=== PATIENT | female | born 1980 | race Caucasian/White ===

== ENCOUNTER 2017-08-21 16:48 | Emergency (ER) | payer MEDICAID ==
[~2017-08-21] VITALS: Ht 152.4 cm; Wt 89.8 kg
[2017-08-21 16:52] VITALS: BP 144/90; Ht 152.4 cm; Wt 89.8 kg
== END 2017-08-21 18:32 | disposition home or self-care (01) ==
LOC: ED 16:48
DX: L29.2 Pruritus vulvae (principal); E03.9 Hypothyroidism, unspecified

== ENCOUNTER 2017-12-14 18:58 | Emergency (ER) | payer MEDICAID ==
[~2017-12-14] VITALS: Ht 152.4 cm; Wt 87.5 kg
[2017-12-14 19:03] VITALS: Ht 152.4 cm; Wt 87.5 kg
[2017-12-14 20:52] VITALS: BP 145/84
== END 2017-12-14 20:52 | disposition home or self-care (01) ==
LOC: ED 18:58
DX: L03.032 Cellulitis of left toe (principal); I10 Essential (primary) hypertension

== ENCOUNTER 2018-04-04 19:55 | Emergency (ER) | payer MEDICAID ==
[~2018-04-04] VITALS: Ht 152.4 cm; Wt 90.8 kg
[2018-04-04 20:06] VITALS: Ht 152.4 cm; Wt 90.8 kg
[2018-04-04 20:32] LABS: PLATELET COUNT 290 x10^3mcL (130-400); RED CELL DISTRIBUTION WIDTH 13.5 % (11.5-14.5)
[2018-04-04 20:45] LABS: ALBUMIN 3.7 g/dL (3.4-5.0); ALKALINE PHOSPHATASE 98 U/L (46-116); ALT/SGPT 33 U/L (14-59); AST/SGOT 20 U/L (15-37); BILIRUBIN TOTAL 0.17 mg/dL (0.20-1.00); CALCIUM 8.8 mg/dL (8.5-10.1); CARBON DIOXIDE 29.4 mmol/L (21-32); CHLORIDE SERUM 102 mmol/L (98-107); CREATININE SERUM 0.6 mg/dL (0.6-1.0); GFR1 > 60 mL/min; GLUCOSE SERUM 99 mg/dL (74-106); LIPASE 150 IU/L (73-393); SODIUM SERUM 134 mmol/L (136-145); TOTAL PROTEIN, SERUM 8.1 g/dL (6.4-8.2)
[2018-04-04 20:50] LABS: POTASSIUM SERUM 2.9 mmol/L (3.5-5.1)
[2018-04-04 23:17] LABS: UA SPECIFIC GRAVITY <=1.005 (1.005-1.035); microscopic required? YES; urine erythrocyte TRACE (NEGATIVE)
[2018-04-04 23:40] VITALS: BP 111/70
== END 2018-04-04 23:52 | disposition home or self-care (01) ==
LOC: ED 19:55
PROVIDERS: Emergency Medicine
DX: N30.00 Acute cystitis without hematuria (principal); E87.6 Hypokalemia
CPT/HCPCS: 36415

== ENCOUNTER 2018-04-06 22:35 | Emergency (ER) | payer MEDICAID ==
[~2018-04-06] VITALS: Ht 152.4 cm; Wt 89.8 kg
[2018-04-06 22:39] VITALS: Ht 152.4 cm; Wt 89.8 kg
[2018-04-07 00:05] LABS: BASOPHIL % 0.3 % (0-2); PLATELET COUNT 266 x10^3mcL (130-400); RED CELL DISTRIBUTION WIDTH 13.3 % (11.5-14.5)
[2018-04-07 00:13] LABS: CALCIUM 8.8 mg/dL (8.5-10.1); CARBON DIOXIDE 28.5 mmol/L (21-32); CHLORIDE SERUM 103 mmol/L (98-107); CREATININE SERUM 0.6 mg/dL (0.6-1.0); GFR1 > 60 mL/min; GLUCOSE SERUM 112 mg/dL (74-106); POTASSIUM SERUM 4.8 mmol/L (3.5-5.1); SODIUM SERUM 137 mmol/L (136-145)
[2018-04-07 00:17] LABS: ALKALINE PHOSPHATASE 92 U/L (46-116); ALT/SGPT 34 U/L (14-59); BILIRUBIN TOTAL 0.3 mg/dL (0.20-1.00); LIPASE 120 IU/L (73-393); TOTAL PROTEIN, SERUM 8.1 g/dL (6.4-8.2)
[2018-04-07 00:18] LABS: ALBUMIN 3.3 g/dL (3.4-5.0); AST/SGOT 45 U/L (15-37)
[2018-04-07 01:05] VITALS: BP 128/97
== END 2018-04-07 01:05 | disposition home or self-care (01) ==
LOC: ED 22:35
PROVIDERS: Emergency Medicine
DX: K80.20 Calculus of gallbladder without cholecystitis without obstruction (principal)
CPT/HCPCS: J2270; J2405; J3490; J7030; Q0092

== ENCOUNTER 2018-05-22 14:39 | Emergency (ER) | payer MEDICAID ==
[~2018-05-22] VITALS: Ht 152.4 cm; Wt 89.8 kg
[2018-05-22 14:47] VITALS: Ht 152.4 cm; Wt 89.8 kg
[2018-05-22 15:09] LABS: BASOPHIL % 1.1 % (0-2); PLATELET COUNT 280 x10^3mcL (130-400); RED CELL DISTRIBUTION WIDTH 13.7 % (11.5-14.5)
[2018-05-22 15:16] LABS: CALCIUM 8.6 mg/dL (8.5-10.1); CARBON DIOXIDE 31.1 mmol/L (21-32); CHLORIDE SERUM 103 mmol/L (98-107); CREATININE SERUM 0.7 mg/dL (0.6-1.0); GFR1 > 60 mL/min; GLUCOSE SERUM 113 mg/dL (74-106); POTASSIUM SERUM 3.6 mmol/L (3.5-5.1); SODIUM SERUM 139 mmol/L (136-145)
[2018-05-22 15:21] LABS: ALBUMIN 3.5 g/dL (3.4-5.0); ALKALINE PHOSPHATASE 93 U/L (46-116); ALT/SGPT 30 U/L (14-59); AST/SGOT 19 U/L (15-37); BILIRUBIN TOTAL 0.2 mg/dL (0.20-1.00); LIPASE 139 IU/L (73-393); TOTAL PROTEIN, SERUM 8.1 g/dL (6.4-8.2)
[2018-05-22 15:58] LABS: microscopic required? NO
[2018-05-22 16:19] LABS: UA SPECIFIC GRAVITY 1.025 (1.005-1.035); urine erythrocyte NEGATIVE (NEGATIVE)
[2018-05-22 18:32] VITALS: BP 115/78
== END 2018-05-22 18:32 | disposition home or self-care (01) ==
LOC: ED 14:39
DX: R10.32 Left lower quadrant pain (principal); R10.31 Right lower quadrant pain; E03.9 Hypothyroidism, unspecified; Z87.19 Personal history of other diseases of the digestive system; Z87.42 Personal history of other diseases of the female genital tract
CPT/HCPCS: 36415

== ENCOUNTER 2018-09-28 13:31 | Emergency (ER) | payer MEDICAID ==
[~2018-09-28] VITALS: Ht 152.4 cm; Wt 89.1 kg
[2018-09-28 13:38] VITALS: Ht 152.4 cm; Wt 89.1 kg
[2018-09-28 16:10] VITALS: BP 115/73
== END 2018-09-28 16:10 | disposition home or self-care (01) ==
LOC: ED 13:31
DX: M54.42 Lumbago with sciatica, left side (principal); I10 Essential (primary) hypertension; E03.9 Hypothyroidism, unspecified
CPT/HCPCS: J1885

== ENCOUNTER 2018-12-31 14:38 | Emergency (ER) | payer MEDICAID ==
[~2018-12-31] VITALS: Ht 152.4 cm; Wt 95.3 kg
[2018-12-31 15:10] VITALS: Ht 152.4 cm; Wt 95.3 kg
[2018-12-31 19:55] VITALS: BP 109/79
== END 2018-12-31 19:55 | disposition home or self-care (01) ==
LOC: ED 14:38
DX: N83.202 Unspecified ovarian cyst, left side (principal); K80.70 Calculus of gallbladder and bile duct without cholecystitis without obstruction; E03.9 Hypothyroidism, unspecified; R51 Headache; R11.2 Nausea with vomiting, unspecified; Z87.19 Personal history of other diseases of the digestive system
CPT/HCPCS: J1885; J2765; Q0092; Q0162